=== PATIENT | male | born 1975 | race Caucasian/White ===

== ENCOUNTER → 2021-10-18 09:59 | Outpatient (BNVA) | payer OTHER, SELFPAY | PROVIDERS: PCP Internal Medicine; Visit Provider Physician Assistant Medical | DX: S46.912A Strain of unspecified muscle, fascia and tendon at shoulder and upper arm level, left arm, initial encounter (principal); X50.3XXA Overexertion from repetitive movements, initial encounter | CPT/HCPCS: 73030; 99203 ==

== ENCOUNTER → 2021-11-01 09:29 | Outpatient (BNVA) | payer OTHER, SELFPAY | PROVIDERS: PCP Internal Medicine; Visit Provider Physician Assistant | DX: S49.92XD Unspecified injury of left shoulder and upper arm, subsequent encounter (principal); X58.XXXD Exposure to other specified factors, subsequent encounter | CPT/HCPCS: 99213 ==

== ENCOUNTER → 2021-11-30 12:50 | Outpatient (BNVA) | payer OTHER, SELFPAY | PROVIDERS: PCP Internal Medicine; Visit Provider Physician Assistant | DX: S49.92XD Unspecified injury of left shoulder and upper arm, subsequent encounter (principal); X58.XXXD Exposure to other specified factors, subsequent encounter | CPT/HCPCS: 99214 ==

== ENCOUNTER 2021-12-14 19:22 | Outpatient (REF) | payer OTHER, SELFPAY ==
--- NOTE | ~2021-12-14 | MR_ITS ---
EXAMINATION: MRI SHOULDER WITHOUT CONTRAST, LEFT CLINICAL INFORMATION: Left shoulder pain. Pulling injury. Instability. COMPARISON: None TECHNIQUE: Multisequence MR imaging of the left shoulder was obtained without contrast on a high-field strength scanner. FINDINGS: ROTATOR CUFF: Mild supraspinatus tendinosis with anterior articular surface partial tearing measuring 1.3 x 1.2 cm (AP x ML). No full-thickness rotator cuff tendon tear. No muscle atrophy or fatty infiltration. BICEPS: Normal CORACOACROMIAL ARCH: The undersurface of the acromion is curved with no subacromial spur. Moderate hypertrophic acromioclavicular osteoarthritis. There is cortical irregularity at the distal clavicle which could indicate prior trauma. LABRUM/CAPSULE: Linear fluid signal extending throughout the undersurface of the superior and posterosuperior labrum as well as throughout the anteroinferior and inferior labrum, consistent with nondisplaced undersurface tearing. Inferior paralabral cyst measuring up to 0.6 cm with mild adjacent edema. Intact inferior joint capsule. GLENOHUMERAL JOINT/MARROW: Intact glenohumeral articular cartilage. Minimal degenerative cystic changes in the greater tuberosity. Small glenohumeral joint effusion. MR/MR shoulder LT wo con IMPRESSION: 1. Nondisplaced undersurface tearing of the superior, posterosuperior, anteroinferior, and inferior labrum with a small inferior paralabral cyst. 2. Mild supraspinatus tendinosis with anterior articular surface partial tearing measuring 1.3 x 1.2 cm. No full-thickness rotator cuff tendon tear. 3. Cortical irregularity of the distal clavicle which could indicate prior trauma. Moderate acromioclavicular osteoarthritis. 4. Small glenohumeral joint effusion.
== END 2021-12-14 19:23 | disposition home or self-care (01) ==
LOC: HO.MRI 19:22
PROVIDERS: Visit Provider Internal Medicine
DX: M25.512 Pain in left shoulder (principal)
CPT/HCPCS: 73221

== ENCOUNTER → 2021-12-15 08:50 | Outpatient (BNVA) | payer OTHER, SELFPAY | PROVIDERS: PCP Internal Medicine; Visit Provider Physician Assistant | DX: S46.812D Strain of other muscles, fascia and tendons at shoulder and upper arm level, left arm, subsequent encounter (principal); X58.XXXD Exposure to other specified factors, subsequent encounter | CPT/HCPCS: 99214 ==